=== PATIENT | male | born 1945 | race Caucasian/White ===

== ENCOUNTER 2020-03-12 10:08 | Outpatient (CLI) | payer MEDICARE, OTHER ==
--- NOTE | 2020-03-12 13:39 | CT ---
CT CHEST AND ABDOMEN AND PELVIS WITHOUT IV CONTRAST: INDICATION: Abdominal pain, nausea. Diabetes. History of colon polyps. COMPARISON: No comparison. FINDINGS: CT CHEST: The lungs are well aerated and clear of infiltrate. No evidence of effusion. There is a 6-7 mm nodule in the posterior left lower lobe peripherally. There may be another tiny le ft lower lobe nodule which is best seen on sagittal image 162 measuring in the 3-4 mm range. A subtle nodule in the right middle lobe seen axial 42 measuring in the 3-4 mm range. The cardiomediastinum is unremarkable. No adenopathy. Osseous structures unremarkable with degenera tive changes in the supine. Vertebral bodies maintain height. IMPRESSION: 1. No acute lung process. 2. There are small bilateral pulmonary nodules, the largest in the left lower lobe posteriorly measu ring 6-7 mm. Recommend short-term followup with repeat CT chest without contrast in 6 months to asse ss stability. CT ABDOMEN AND PELVIS: Liver, spleen, and pancreas unremarkable. There are numerous peripherally calcified gallstones seen within a mildly contracted gallbladder. No evidence of pericholecystic edema. Stomach and duodenum unremarkable. Adrenal glands and kidneys unremarkable. Small bowel loops normal. Appendix appears normal. The colon is unremarkable. Aorta normal caliber. Images through the pelvis show mild prostatic hypertrophy. The urinary bladder is mildly distended a nd unremarkable. Osseous structures show mild degenerative changes at both hips. Degenerative spine changes. Vertebr al bodies of the lumbar spine maintain height and alignment and disk spaces are preserved. IMPRESSION: 1. Cholelithiasis. 2. CT abdomen and pelvis otherwise unremarkable. POS: AH
== END 2020-03-12 10:09 | disposition home or self-care (01) ==
LOC: SCSCT 10:08
PROVIDERS: ATTEND Internal Medicine Gastroenterology
DX: K42.9 Umbilical hernia without obstruction or gangrene (principal); R11.0 Nausea; R10.9 Unspecified abdominal pain; E11.9 Type 2 diabetes mellitus without complications; K80.20 Calculus of gallbladder without cholecystitis without obstruction; R91.8 Other nonspecific abnormal finding of lung field; Z86.010 Personal history of colon polyps
CPT/HCPCS: 71260; 74177

== ENCOUNTER 2023-12-07 17:04 | Emergency (ER) | payer MEDICARE, OTHER ==
[2023-12-07] MEDS ORDERED: Morphine 4 MG/ML VIAL ONE (17:53)
[2023-12-07] MEDS ORDERED: Ketorolac Tromethamine 30 MG (1 mL) VIAL ONE (17:53)
[2023-12-07 18:09] LABS: #Basophils 0.1 thou/uL (0.0-0.2); #Eosinphils 0.2 thou/uL (0.0-0.7); #Monocytes 0.7 thou/uL (0.11-0.59); #Neutrophils 5.7 thou/uL (1.40-6.50); %Basophils 0.9 % (0.0-1.0); %Eosinophils 2.7 % (0.0-10.0); %Lymphocytes 16.5 % (21.0-51.0); %Monocytes 8.1 % (0.0-10.0); %Neutrophils 71.6 % (42.0-75.0); Hematocrit 43.4 % (42.0-52.0); Hemoglobin 14.8 g/dL (14.0-18.0); Mean Corpuscular HGB CONC 34.1 g/dL (32.0-36.0); Mean Corpuscular Hemoglobin 31.2 pg (27.0-31.0); Mean Corpuscular Volume 91.4 fl (78.0-98.0); Mean Platelet Volume 10.6 fL (7.4-10.4); Platelet Count 182 10x3/uL (130-400); RBC Distribution Width 12.8 % (11.5-14.5); Red Blood Cell (RBC) Count 4.75 mill/uL (4.70-6.10)
[2023-12-07 18:29] LABS: ALT (SGPT) 23 U/L (8-55); AST (SGOT) 18 U/L (5-34); Albumin 4.2 g/dL (3.4-4.8); Alkaline Phosphatase 61 U/L (40-110); Anion Gap 16 mmol/L (10-20); BUN (Urea Nitrogen) 21 mg/dL (8.4-25.7); Bilirubin, Total 0.7 mg/dL (0.2-1.2); Calc. Creatinine Clearance 0 mL/min (70-130); Carbon Dioxide 26 mmol/L (23-31); Chloride 103 mmol/L (98-107); Estimated GFR 48; Globulin 2.7 g/dL (2.4-3.5); Glucose 125 mg/dL (83-110); Lipase 82 U/L (8-78); Potassium 3.9 mmol/L (3.5-5.1); Protein, Total 6.9 g/dL (5.8-8.1); Sodium 141 mmol/L (136-145)
[2023-12-07 18:37] LABS: INR-International Normal Ratio 3.4; PTT 39.4 sec (22.9-36.1); Prothrombin Time 34.5 sec (12.0-14.7)
[2023-12-07 20:01] LABS: Bacteria/HPF None Seen HPF (None Seen); Bilirubin Negative (Negative); Blood, Urine Negative (Negative); CAUTI Indications for Culture Pelvic or flank pain; Clarity Clear (Clear); Glucose, Urine (Dipstick) Normal (Negative); Ketone, Urine Negative (Negative); Leukocyte Negative Leu/uL (Negative); Nitrite Negative (Negative); Protein, Urine (Dipstick) 10 mg/dL (Neg-Trace); RBC/HPF 0-3 HPF (0-3); Specific Gravity, Urine 1.029 (1.002-1.036); Squamous Epithelial None Seen HPF (0-3); Urobilinogen Normal mg/dL (Less than 2); WBC/HPF 0-3 HPF (0-3)
[2023-12-07 20:02] LABS: Urine Culture Reflex No No
== END 2023-12-07 21:10 | disposition home or self-care (01) ==
LOC: ERS 17:04
DX: M54.50 Low back pain, unspecified (principal); R03.0 Elevated blood-pressure reading, without diagnosis of hypertension; I12.9 Hypertensive chronic kidney disease with stage 1 through stage 4 chronic kidney disease, or unspecified chronic kidney disease; N18.9 Chronic kidney disease, unspecified; E11.22 Type 2 diabetes mellitus with diabetic chronic kidney disease; E78.5 Hyperlipidemia, unspecified; E11.40 Type 2 diabetes mellitus with diabetic neuropathy, unspecified; Z79.899 Other long term (current) drug therapy; Z79.84 Long term (current) use of oral hypoglycemic drugs; Z79.01 Long term (current) use of anticoagulants
CPT/HCPCS: 36415; 74176; 80053; 81001; 83690; 85025; 85610; 85730; 93005; 96374; 96375; J1885; J2270

== ENCOUNTER 2025-05-23 11:09 | Outpatient (CLI) | payer MEDICARE, OTHER | END 2025-05-23 11:10 | disposition home or self-care (01) | LOC: SCSMRI 11:09 | PROVIDERS: ATTEND Family Medicine Sports Medicine | DX: M47.816 Spondylosis without myelopathy or radiculopathy, lumbar region (principal); M51.369 Other intervertebral disc degeneration, lumbar region without mention of lumbar back pain or lower extremity pain; M48.061 Spinal stenosis, lumbar region without neurogenic claudication | CPT/HCPCS: 72148 ==